=== PATIENT | male | born 1950 | race Caucasian/White ===

== ENCOUNTER 2018-06-30 20:21 | Inpatient (IN) ==
[~2018-06-30] VITALS: Ht 175.3 cm; Wt 63.5 kg
--- NOTE | 2018-06-30 20:30 | NUR ---
[facility]/C COMBATIVE BEHAVIOR. PT AWAKE, UNCLEAR SPEECH, AND APPEARS DISHEVELED. VSS. SKIN DRY AND INTACT. RESPIRATIONS EVEN AND UNLABORED. NO ACUTE DISTRESS NOTED AT THIS TIME. PT PLACED ON CONTINUOUS SPA COORDINATOR.
--- NOTE | 2018-06-30 20:55 | NUR ---
RADIOLOGY AT BEDSIDE FOR CXR
--- NOTE | 2018-06-30 21:23 | NUR ---
UNABLE TO COLLECTED URINE VIA IN AND OUT CATH, DR. ECHEVERRIA MADE AWARE
[2018-06-30] MEDS ORDERED: HALOPERIDOL LACTATE INJ 5 MG/ML VIAL ONE (21:26)
[2018-06-30 21:29] LABS: BASOPHILS # (AUTO) 0.1 /CMM (0.0-0.2); BASOPHILS % (AUTO) 0.5 % (0.0-2.0); EOSINOPHILS % (AUTO) 0.4 % (0.0-6.0); HEMATOCRIT 44 % (39-51); HEMOGLOBIN 14.5 g/dL (13.5-17.5); LYMPHOCYTES # (AUTO) 2.4 /CMM (0.8-4.8); LYMPHOCYTES % (AUTO) 16.6 % (20.0-44.0); MEAN CORPUSCULAR HGB CONC 33 g/dl (31.0-36.0); MEAN CORPUSCULAR VOLUME 90 fL (80-96); MONOCYTES # (AUTO) 0.7 /CMM (0.1-1.30); MONOCYTES % (AUTO) 4.7 % (2.0-12.0); NEUTROPHILS # (AUTO) 11.4 /CMM (1.8-8.9); NEUTROPHILS % (AUTO) 77.8 % (43.0-81.0); PLATELET COUNT (AUTO) 241 /CMM (150-450); RDW COEFFICIENT OF VARIATION 14.4 (11.5-15.0); WHITE BLOOD COUNT (AUTO) 14.7 K/uL (4.3-11.0)
[2018-06-30] MEDS ORDERED: HALOPERIDOL LACTATE INJ 5 MG/ML VIAL IM ONE (21:30)
[2018-06-30 21:41] LABS: CALCIUM, SERUM 9.5 mg/dL (8.5-10.1); CARBON DIOXIDE 31 mmol/L (21-32); CHLORIDE 104 mmol/L (98-107); CREATININE 0.9 mg/dL (0.6-1.3); GLUCOSE 143 mg/dL (74-106); SODIUM SERUM 142 mmol/L (136-145); UREA NITROGEN, BLOOD 9 mg/dL (7-18)
[2018-06-30 21:44] LABS: ALCOHOL, BLOOD < 3 mg/dL (0-0); POTASSIUM 2.6 mmol/L (3.5-5.1)
[2018-06-30 21:48] LABS: TROPONIN I < 0.017 ng/mL (0.00-0.056)
--- NOTE | 2018-06-30 21:58 | NUR ---
PT IS ASSIGNED TO [facility]#: [id number], DX: HYPOKALEMIA, AND ACCEPTING MD: DR BARNETT
[2018-06-30] MEDS ORDERED: POTASSIUM CL. PREMIX PERIPHER. 50 ML ONE (22:02)
[2018-06-30] MEDS: POTASSIUM CL. PREMIX PERIPHER. 50 ML IV SCH ×2 (22:22→23:45)
--- NOTE | 2018-06-30 22:22 | NUR ---
IVBP KCL 10MEQ BAG 1 TRANSFUSING AT THIS TIME. PT TOLERATING AT THIS TIME.
[2018-06-30] MEDS ORDERED: INSULIN REGULAR, HUMAN 100 UNIT/ML 3 ML VIAL SQ PRN (22:30)
[2018-06-30] MEDS ORDERED: MAGNESIUM HYDROXIDE 30 ML UDC PO PRN (22:30)
[2018-06-30] MEDS ORDERED: MAG HYDROX/AL HYDROX/SIMETH 30 ML UDC PO PRN (22:30)
[2018-06-30] MEDS ORDERED: IV NS 0.9% 1,000 ML BAG IV ONE (22:30)
[2018-06-30] MEDS ORDERED: HYDROCODONE/APAP 5/325MG 1 EACH TABLET PO PRN (22:30)
[2018-06-30] MEDS ORDERED: ACETAMINOPHEN 325 MG TABLET PO PRN (22:30)
[2018-06-30] MEDS ORDERED: Z GUARD REMEDY 2 OZ OINT TP PRN (22:30)
[2018-06-30] MEDS ORDERED: ZOLPIDEM TARTRATE 5 MG TABLET PO PRN (22:30)
[2018-06-30] MEDS ORDERED: DEXTROSE 50%-WATER 50 ML DISP.SYRIN IV PRN (22:30)
[2018-06-30] MEDS ORDERED: ONDANSETRON HCL/PF 4 MG/2 ML VIAL IVP PRN (22:30)
[2018-06-30] MEDS ORDERED: POTASSIUM CL. PREMIX PERIPHER. 150 ML ONE (22:36)
--- NOTE | 2018-06-30 22:40 | NUR ---
PT TRANSFERRED PER ACLS PROTOCOL. IVBP KCL 1 OF 4 BAGS TRANFUSING ON ADMISSION. PT TOLERATING WELL.
--- NOTE | 2018-06-30 23:00 | NUR ---
MS BARBER SHOP MANAGER NOTES ADMITTED FROM ER THIS 67 Y.O. MALE A/O X1,CONFUSED,WITH PERIODS OF AGITATION AND COMBATIVENESS.SWEDISH SPEAKING WITH GARBLED SPEECH.NOTED WITH MULTIPLE SKIN ISSUES DOCUMENTED ON SKIN ASSESSMENT FLOW SHEET.WITH SALINE LOCK RIGHT FOOT #20,INSERTED IN ER.PATIENT CAME FROM BOARD AND CARE.WITH CHIEF COMPLAINTS OF LOW BLOOD SUGAR AT 40,GIVEN GLUCOSE TABLET CABLE TESTER.WITH CLAMPED GT FROM BOARD AND CARE.NOTED FOOT DROP ON BOTH FEET.POTASSIUM IV ON GOING UPON ARRIVAL ON THE FLOOR,3 MORE BAGS TO INFUSE.HIGH FALL RISK,WAS PLACE NEAR NURSES STATION.BED ON LOWEST POSITION AND LOCK.CALL LIGHT IN REACH,NEEDS ANTICIPATED.
[2018-06-30 23:20] VITALS: BP 147/91
[2018-06-30 23:55] VITALS: BP 147/91
--- NOTE | 2018-07-01 00:03 | NUR ---
MS RN NOTES C/O PAIN 5/10 ON PAIN SCALE VIA RIGHT FOOT,NORCO 5/325MG,1TAB PO GIVEN FOR MODERATE PAIN.
[2018-07-01] MEDS: POTASSIUM CL. PREMIX PERIPHER. 50 ML IV SCH ×2 (00:44→02:11)
[2018-07-01] MEDS: Potassium Chloride 40 MEQ in IV NS 0.9% 1,000 ML IV PRN ×2 (04:05→15:41)
--- NOTE | 2018-07-01 05:30 | NUR ---
MS RN NOTES ACCU-CHECK BLOOD SUGAR CHECK 103,MORE AWAKE,CONFUSED.DRINKS A LOT OF JUICE.NEGATIVE FOR ASPIRATION.
[2018-07-01] MEDS: BLOOD SUGAR DIAGNOSTIC 1 EACH STRIP IN SCH ×4 (06:15→21:34)
--- NOTE | 2018-07-01 06:30 | NUR ---
MS RN NOTES SLEPT WITH INTERVAL.ALWAYS ASKING FOR APPLE JUICE.MONITOR FOR FALL,NEGATIVE FOR ASPIRATON.IVF WITH KCL INFUSING.IN NO ACUTE DISTRESS.WILL ENDORSE TO DAY NRSE FOR GENE.
[2018-07-01 07:06] LABS: BASOPHILS % (AUTO) 0.2 % (0.0-2.0); EOSINOPHILS % (AUTO) 0.5 % (0.0-6.0); HEMATOCRIT 39 % (39-51); HEMOGLOBIN 12.8 g/dL (13.5-17.5); LYMPHOCYTES # (AUTO) 1.6 /CMM (0.8-4.8); LYMPHOCYTES % (AUTO) 17.6 % (20.0-44.0); MEAN CORPUSCULAR HGB CONC 33 g/dl (31.0-36.0); MEAN CORPUSCULAR VOLUME 93 fL (80-96); MONOCYTES # (AUTO) 0.5 /CMM (0.1-1.30); MONOCYTES % (AUTO) 5.5 % (2.0-12.0); NEUTROPHILS # (AUTO) 6.8 /CMM (1.8-8.9); NEUTROPHILS % (AUTO) 76.2 % (43.0-81.0); PLATELET COUNT (AUTO) 205 /CMM (150-450); RDW COEFFICIENT OF VARIATION 15.9 (11.5-15.0); WHITE BLOOD COUNT (AUTO) 8.9 K/uL (4.3-11.0)
[2018-07-01 07:13] LABS: THYROID STIMULATING HORMONE 2.655 uIU/mL (0.358-3.74)
[2018-07-01 07:16] LABS: CALCIUM, SERUM 8.6 mg/dL (8.5-10.1); CREATININE 0.7 mg/dL (0.6-1.3); MAGNESIUM 2.1 mg/dL (1.8-2.4); PHOSPHORUS 2.9 mg/dL (2.5-4.9)
[2018-07-01 07:50] LABS: POTASSIUM 2.8 mmol/L (3.5-5.1)
[2018-07-01 08:00] VITALS: BP 157/87
--- NOTE | 2018-07-01 08:00 | NUR ---
MS RN NOTES PATIENT IN BED RESTING NO SOB OR ACUTE DISTRESS NOTED. PATIENT CONFUSED. PERIPHERAL IV ON RIGHT FOOT INTACT PATENT. BED IN LOW LOCKED POSITION. CALL LIGHT WITHIN REACH. BED ALARM ON WILL CONTINUE TO MONITOR.
--- NOTE | 2018-07-01 09:11 | NUR ---
WOUND CARE CONSULT: PT PRESENTS WITH OLD G TUBE (CLAMPED), RT HAND DRY ABRASION, BILAT HAND CONTRACTURES, LEFT ANKLE SCAB, SACRAL SCAR, LEFT HEEL SCAR AND DRY ABRASIONS TO LOWER LEGS WITH SCARRING, PRESENT ON ADMISSION. RECOMMENDATIONS MADE FOR SKIN PROTECTION AND CARE. DISCUSSED WITH NURSING STAFF. PT IS INCONTINENT. OUSMANE ISOFLEX LOW AIRLOSS BED TO BE PLACED. WILL SEE PRN. CURRENT ABAD SCORE IS 11. Addendum: 07/01/18 at 0913 by CLAUDIA TURCIOS WNDNU Amended: Links added.
--- NOTE | 2018-07-01 11:00 | NUR ---
MS RN NOTES PATIENT SEEN BY MELODIE WU INFORMED MELODIE OF PATIENTS G-TUBE APPEARANCE WHICH APPEARS BROWN AND TIED AT THE TOP. NO ORDERS GIVEN. WILL CONTINUE TO MONITOR.
[2018-07-01] MEDS ORDERED: POTASSIUM CHLORIDE 20 MEQ TAB.PRT.SR PO ONE (12:00)
[2018-07-01] MEDS ORDERED: LEVO50TA8 GT (13:05)
[2018-07-01] MEDS ORDERED: DONE10TA44 GT (13:05)
[2018-07-01] MEDS ORDERED: ZOLP10TA2 GT (13:05)
[2018-07-01] MEDS ORDERED: LORA2VIA6 IJ (13:05)
[2018-07-01] MEDS ORDERED: HYDR-4075 GT (13:05)
[2018-07-01] MEDS ORDERED: AMLO10TA6 GT (13:05)
[2018-07-01] MEDS ORDERED: DIPH50VI14 IM (13:05)
[2018-07-01] MEDS ORDERED: CHOL100062 GT (13:05)
[2018-07-01] MEDS ORDERED: VALP250S3 GT (13:05)
[2018-07-01] MEDS ORDERED: TAMS0.4C34 GT (13:05)
[2018-07-01] MEDS ORDERED: SIME80TA15 GT (13:05)
[2018-07-01] MEDS ORDERED: FINA5TAB11 GT (13:05)
[2018-07-01] MEDS ORDERED: ENOX40DI SQ (13:05)
[2018-07-01 16:00] VITALS: BP 149/91
--- NOTE | 2018-07-01 18:58 | NUR ---
MS RN NOTES PATIENT IN BED RESTING COMFORTABLE. ALL DUE MEDICATIONS ADMINISTERED ALL NEEDS MET. WILL ENDORSE TO PM SHIFT GENE.
--- NOTE | 2018-07-01 19:30 | NUR ---
MS RN NOTE: PATIENT RESTING IN BED, NO ACUTE DISTRESS NOTED. BREATHING EVEN AND UNLABORED, NO SOB NOTED. IV TO RIGHT FOOT IN PLACE, INFUSING NS WITH 40MEQ KCL AT 100ML/HR. NO S/S OF HYPER/HYPOGLYCEMIA NOTED. BED LOCKED AND IN LOWEST POSITION, CALL LIGHT IN REACH. WILL CONTINUE TO MONITOR.
[2018-07-01 20:44] VITALS: BP 153/85
--- NOTE | 2018-07-01 21:34 | NUR ---
MS RN NOTE: PATIENT REFUSES BLOOD SUGAR CHECK, TRIED TO EXPLAIN RISK AND BENEFITS, BUT PATIENT CONFUSED AND COMBATIVE. NO S/S OF HYPER/HYPOGLYCEMIA NOTED. WILL CONTINUE TO MONITOR.
[2018-07-02] MEDS: Potassium Chloride 40 MEQ in IV NS 0.9% 1,000 ML IV PRN ×3 (01:52→21:16)
[2018-07-02] MEDS: BLOOD SUGAR DIAGNOSTIC 1 EACH STRIP IN SCH ×4 (06:31→22:00)
--- NOTE | 2018-07-02 06:31 | NUR ---
MS RN NOTE: PATIENT RESTING IN BED, NO ACUTE DISTRESS NOTED. BREATHING EVEN AND UNLABORED, NO SOB NOTED. IV TO RIGHT FOOT IN PLACE, INFUSING NS WITH 40MEQ KCL AT 100ML/HR. PATIENT CONTINUES TO REFUSE BLOOD SUGAR CHECK AND BECOMES COMBATIVE, NO S/S OF HYPER/HYPOGLYCEMIA NOTED. TRIED TO EXPLAIN RISK AND BENEFITS, BUT PATIENT IS CONFUSED. BED LOCKED AND IN LOWEST POSITION, CALL LIGHT IN REACH. WILL ENDORSE TO DAY NURSE TO CONTINUE WITH PLAN OF CARE.
[2018-07-02 08:00] VITALS: BP 144/100
--- NOTE | 2018-07-02 08:21 | NUR ---
MS RN OPENING NOTES RECEIVED PT FROM NIGHTSHIFT NURSE IN RIZWAN CONDITION. PT IS A/O X1. NO SOB OR ACUTE SIGNS OF DISTRESS NOTED. BREATHING IS EVEN AND UNLABORED.PT ON RA AND SATING WELL. HE DENIES ANY PAIN AT THIS TIME. IV TO RIGHT FOOT NOTED TO BE PATENT AND INTACT. NO REDNESS OR SIGNS OF INFILTRATION NOTED. PT TOLERATING IV INFUSION WELL. BED IN LOW LOCKED POSITION, SIDE RAILS UP X3, CALL LIGHT WITHIN REACH, BED ALARM ON. WILL CONTINUE TO MONITOR
--- NOTE | 2018-07-02 09:12 | NUR ---
MS RN NOTES: AM LABS PT REFUSED AM LAB DRAWS X2
[2018-07-02] MEDS: ENOXAPARIN SODIUM 40 MG/0.4 ML DISP.SYRIN SQ SCH (12:30)
[2018-07-02] MEDS: hydrALAZINE HCL 10 MG TABLET GT SCH ×2 (13:00→16:46)
[2018-07-02] MEDS ORDERED: VALPROIC ACID 250 MG/5 ML UDC GT SCH (13:00)
--- NOTE | 2018-07-02 13:40 | NUR ---
MS RN NOTES: MEDICATION REFUSAL PT REFUSED 1200 BS CHECK, ALONG WITH SCHEDULED LOVENOX, DEPAKOTE, AND HYDRALAZINE. PT EDUCATED ON MEDICATION COMPLIANCE ALONG WITH THE RISKS AND BENEFITS HOWEVER, CONTINUES TO REFUSE
[2018-07-02 16:00] VITALS: BP 150/82
--- NOTE | 2018-07-02 17:23 | NUR ---
MS RN NOTES: EKG PT REFUSED EKG
--- NOTE | 2018-07-02 18:26 | NUR ---
MS RN CLOSING NOTES PT REMAINS STABLE. ALL NEEDS ANTICIPATED FOR AND MET THROUGHOUT SHIFT. IV REMAINS PATENT AND INTACT. PT TOLERATING IV INFUSION WELL. PRN CARE RENDERED PT PERMITTED. SAFETY MEASURES REMAIN IN PLACE. WILL ENDORSE TO NIGHTSHIFT NURSE FOR GENE
--- NOTE | 2018-07-02 19:30 | NUR ---
MS/RN RECEIVE PATIENT AWAKE, ALERT, CONFUSED, COMFORTABLE, NO DISTRESS NOTED, FALL PRECAUTION PER PROTOCOL, CALL LIGHT IN REACH. WILL MONITOR.
[2018-07-02 20:00] VITALS: BP 138/72
[2018-07-02] MEDS ORDERED: VALPROATE 500 MG in IV D5W 100 ML IV SCH (21:00)
[2018-07-02] MEDS: VALPROATE 500 MG in IV NS 0.9% 100 ML IV SCH (21:16)
[2018-07-02] MEDS: ATORVASTATIN 10 MG TABLET GT SCH (22:00)
[2018-07-02] MEDS: TAMSULOSIN 0.4 MG CAP.SR.24H GT SCH (22:00)
--- NOTE | 2018-07-02 22:22 | NUR ---
MS/RN PATIENT REFUSED BLOOD SUGAR CHECK AND MEDICATIONS.
--- NOTE | 2018-07-03 05:00 | NUR ---
MS/RN MORNING CARE DONE, TOTAL LINEN CHANGE RENDERED. REPOSITIONED TO COMFORT, WILL CONTINUE TO MONITOR.
--- NOTE | 2018-07-03 06:23 | NUR ---
MS/RN PATIENT REFUSED BLOOD DRAW, EXPLAINED IMPORTANCE, UNABLE TO VERBALIZED UNDERSTANDING.
--- NOTE | 2018-07-03 06:34 | NUR ---
MS/RN PATIENT REFUSED ACCU CHECK. EXPLAINED IMPORTANCE OF ACCU CHECK, PATIENT UNABLE TO VERBALIZED UNDERSTANDING. NO CHANGE IN CONDITION. ALL NEEDS ATTENDED AT THIS TIME. WILL CONTINUE TO MONITOR.
[2018-07-03] MEDS: BLOOD SUGAR DIAGNOSTIC 1 EACH STRIP IN SCH ×4 (07:09→21:41)
[2018-07-03 08:00] VITALS: BP 132/70
[2018-07-03] MEDS: CHOLECALCIFEROL 1,000 UNIT TABLET (VIT D3) GT SCH (09:00)
[2018-07-03] MEDS: FINASTERIDE (5 MG) 5 MG TABLET GT SCH (09:00)
[2018-07-03] MEDS: ENOXAPARIN SODIUM 40 MG/0.4 ML DISP.SYRIN SQ SCH (09:00)
[2018-07-03] MEDS: LEVOTHYROXINE SODIUM 50 MCG TABLET GT SCH (09:00)
[2018-07-03] MEDS: SIMETHICONE 80 MG TAB.CHEW GT SCH (09:00)
[2018-07-03] MEDS: hydrALAZINE HCL 10 MG TABLET GT SCH ×3 (09:00→16:34)
[2018-07-03] MEDS: AMLODIPINE BESYLATE 10 MG TABLET GT SCH (09:00)
[2018-07-03 09:59] LABS: HEMATOCRIT 46 % (39-51); MEAN CORPUSCULAR HGB CONC 32 g/dl (31.0-36.0); MEAN CORPUSCULAR VOLUME 94 fL (80-96); RDW COEFFICIENT OF VARIATION 15.9 (11.5-15.0); RED BLOOD CELL COUNT(AUTO) 4.92 MIL/uL (4.5-6.0); WHITE BLOOD COUNT (AUTO) 9.2 K/uL (4.3-11.0)
[2018-07-03 10:00] LABS: BASOPHILS % (AUTO) 0.3 % (0.0-2.0); EOSINOPHILS % (AUTO) 1.7 % (0.0-6.0); LYMPHOCYTES # (AUTO) 2.9 /CMM (0.8-4.8); LYMPHOCYTES % (AUTO) 31.7 % (20.0-44.0); MONOCYTES # (AUTO) 0.4 /CMM (0.1-1.30); MONOCYTES % (AUTO) 4.4 % (2.0-12.0); NEUTROPHILS # (AUTO) 5.7 /CMM (1.8-8.9); NEUTROPHILS % (AUTO) 61.9 % (43.0-81.0); PLATELET COUNT (AUTO) 292 /CMM (150-450)
[2018-07-03 10:04] LABS: CALCIUM, SERUM 9.7 mg/dL (8.5-10.1); CREATININE 0.9 mg/dL (0.6-1.3)
[2018-07-03 10:11] LABS: POTASSIUM 6.1 mmol/L (3.5-5.1)
[2018-07-03] MEDS: VALPROATE 500 MG in IV NS 0.9% 100 ML IV SCH ×2 (10:41→21:35)
[2018-07-03] MEDS ORDERED: IV NS 0.9% 1,000 ML BAG IV PRN (11:30)
[2018-07-03] MEDS: IV NS 0.9% 1,000 ML IV PRN ×2 (12:09→23:33)
[2018-07-03 16:00] VITALS: BP 147/80
--- NOTE | 2018-07-03 16:43 | NUR ---
MS RN NOTE: 1200/1730 ACCU CHECKS PT REFUSED ALL BLOOD SUGAR CHECKS. EDUCATION OF RISKS AND BENEFITS PROVIDED
--- NOTE | 2018-07-03 17:02 | NUR ---
MS RN NOTES: UA SPECIMEN COLLECTION MULTIPLE ATTEMPTS MADE TO INSERT STRAIGHT CATHETER FOR UA SAMPLE HOWEVER PT BECAME PHYSICALLY ABUSIVE, BEGAN SPITTING, AT MYSELF AND THE FREIGHT RATE ANALYST, AND IS REFUSING ANY FURTHER ATTEMPTS
--- NOTE | 2018-07-03 19:10 | NUR ---
MS RN OPENING NOTES Received patient, A/O X1, on supine position on bed. With patent peripheral IV line RFA G#20 with NS infusing well @ 100ml/hr. On RA, no SOB/respiratory distress noted. Patient denies discomfort at this time. For UA collection, per report patient noted to be refusing and uncooperative with the prescribed care. Call light within easy reach. Bed on lowest position, locked. Kept clean, dry and comfortable. Will monitor accordingly.
--- NOTE | 2018-07-03 20:00 | NUR ---
MS RN NOTES Patient refused to be checked of his v/s signs.
[2018-07-03] MEDS: TAMSULOSIN 0.4 MG CAP.SR.24H GT SCH (21:41)
[2018-07-03] MEDS: ATORVASTATIN 10 MG TABLET GT SCH (21:41)
[2018-07-03] MEDS: DONEPEZIL 5 MG TABLET GT SCH (21:42)
--- NOTE | 2018-07-03 21:42 | NUR ---
MS RN NOTES Encourage patient to take his due PO meds and have his blood sugar check. Patient refused. Explained the risk and benefits x3, patient is uttering uncomprehensible words, when ask if he can take his pills he reply "NO".
--- NOTE | 2018-07-04 05:48 | NUR ---
MS RN NOTES Noted foul smelling and beddings soaked in urine. Approached patient calmly, but patient is agitated and combative. Cleaned patient with 2 person assist. Noted had loose BM. Kept clean, dry and comfortable. Call light held by patient at all times. Will continue to monitor.
--- NOTE | 2018-07-04 06:56 | NUR ---
MS RN CLOSING NOTES Patient asleep on supine position on bed, with patent peripheral IV line R foot with Ns infusing well @ 100ml/hr. No signs of discomfort noted at this time. Refused vital signs check, accu check, and blood drawn. Kept on bed clean, dry and comfortable. Call light held by patient at all times. Endorsed to the next shift.
[2018-07-04] MEDS: BLOOD SUGAR DIAGNOSTIC 1 EACH STRIP IN SCH ×4 (07:30→21:51)
--- NOTE | 2018-07-04 07:37 | NUR ---
MS RN NOTES PATIENT RECEIVED RESTING INSIDE ROOM. AWAKE, ALERT AND ORIENTED TO SELF. VERBALLY RESPONSIVE AND RESPONDS TO VERBAL AND TACTILE STIMULI. BREATHING EVEN AND UNLABORED. NO SOB OR ACUTE DISTRESS. DENIES ANY PAIN OR DISCOMFORT. NO CHANGES IN LOC NOTED. OFFERED TO CHECK FSBS BUT PATIENT REFUSED. RISKS AND BENEFITS EXPLAINED BUT TO NO AVAIL. OFFERED X 3, PATIENT RESPONDED, "NO" TO ALL OFFERS. WILL CONTINUE TO MONITOR. BED LOCKED AND IN LOW POSITION. BILATERAL UPPER SIDE RAILS UP AND LOCKED. CALL LIGHT WITHIN EASY REACH.
[2018-07-04 08:36] VITALS: BP 160/98
[2018-07-04] MEDS: hydrALAZINE HCL 10 MG TABLET GT SCH ×3 (09:00→16:12)
[2018-07-04] MEDS: AMLODIPINE BESYLATE 10 MG TABLET GT SCH (09:00)
[2018-07-04] MEDS: ENOXAPARIN SODIUM 40 MG/0.4 ML DISP.SYRIN SQ SCH (09:00)
[2018-07-04] MEDS: FINASTERIDE (5 MG) 5 MG TABLET GT SCH (09:00)
[2018-07-04] MEDS: LEVOTHYROXINE SODIUM 50 MCG TABLET GT SCH (09:00)
[2018-07-04] MEDS: CHOLECALCIFEROL 1,000 UNIT TABLET (VIT D3) GT SCH (09:00)
[2018-07-04] MEDS: SIMETHICONE 80 MG TAB.CHEW GT SCH (09:00)
[2018-07-04] MEDS: VALPROATE 500 MG in IV NS 0.9% 100 ML IV SCH ×2 (09:11→21:48)
[2018-07-04] MEDS: IV NS 0.9% 1,000 ML IV PRN (11:15)
[2018-07-04 16:07] VITALS: BP 138/87
--- NOTE | 2018-07-04 18:54 | NUR ---
MS RN NOTES PATIENT RESTING INSIDE ROOM. AWAKE, ALERT AND ORIENTED TO SELF. PATIENT WITH DISORGANIZED THOUGHT PROCESS. WITH MULTIPLE EPISODES OF REFUSING CARE, MEDICATIONS. RISKS AND BENEFITS EXPLAINED BUT TO NO AVAIL. PATIENT WITH EPISODES OF STRIKING OUT. WITH ATTEMPTS OF HITTING STAFF. PATIENT REFUSED TO HAVE IV ON RIGHT FOOT ASSESSED. PATIENT WOULD SWING FEET AND ATTEMPT TO KICK STAFF. ALSO WITH EPISODES OF THROWING BED ARTICLES TO STAFF. PROVIDED WITH LESS STIMULI. PROVIDED PATIENT WITH CALM ENVIRONMENT AND PATIENT CALMED DOWN. WILL ENDORSE TO INCOMING SHIFT FOR GENE. BED LOCKED AND IN LOW POSITION. BILATERAL UPPER SIDE RAILS UP AND LOCKED. MAINTAINED ASPIRATION PRECAUTION. ELEVATED HOB AT 45. BED ALARM ON. CALL LIGHT WITHIN EASY REACH
--- NOTE | 2018-07-04 19:10 | NUR ---
MS RN OPENING NOTES Patient A/O x1, on supine position on bed. IV line disconnected, NS @ 400 ml level. Patient refused to be repositioned, remained clean and dry. No s/s of discomfort noted at this time. Patient holding the call light. Approached the patient calmly, able to check peripheral IV line R foot G#20, remains patent. Reconnected IV line and infuse @ 100ml/hr as ordered. Kept bed low and locked, siderails x2 up. Will continue to monitor accordingly.
[2018-07-04 20:00] VITALS: BP 154/86
[2018-07-04 20:22] VITALS: BP 154/86
[2018-07-04] MEDS: DONEPEZIL 5 MG TABLET GT SCH (21:51)
[2018-07-04] MEDS: ATORVASTATIN 10 MG TABLET GT SCH (21:51)
[2018-07-04] MEDS: TAMSULOSIN 0.4 MG CAP.SR.24H GT SCH (21:51)
[2018-07-05] MEDS: IV NS 0.9% 1,000 ML IV PRN ×2 (00:43→12:46)
--- NOTE | 2018-07-05 05:06 | NUR ---
MS RN NOTES Routine care done with 2 persons assist. Patient noted combative, hitting, yelling and spitting the staff. Patient tolerated the procedure well. Kept on bed comfortably. Call light held by patient at all times.
--- NOTE | 2018-07-05 06:55 | NUR ---
MS RN CLOSING NOTES Patient asleep on supine position on bed, with patent peripheral IV line R foot G#20 with NS infusing well @ 100ml/hr as ordered, no s/s of infiltration noted. Due IV meds given as ordered, no ASE noted. Patient refused all PO meds and accu check. No latest labs as ordered, patient refused blood draw. Patient was noted pressing call lights several times, each call was attended but patient has no concerns, only pressing the help button while watching TV. Patient is combative with routine change of diaper and bed linens, noted punching staff, hitting with call light and anything held by hand, and spitting. Able to managed cleaning the patient with 2 persons assist. Kept clean, dry and comfortable. No new unusualities. Still awaiting for placement. Bed in lowest position, locked and siderails X2 up. Endorsed to the next shift.
--- NOTE | 2018-07-05 07:10 | NUR ---
MS/RN OPENING NOTE PATIENT IS RECEIVED IN BED AWAKE. ALERT AND ORIENTED X1. PATIENT IS NOTED TO HAVE DISORGANIZED THOUGH. DENIES PAIN. RESPIRATION REGULAR AND UNLABORED. DENIES SOB. PATIENT IN NO APPARENT DISTRESS. RIGHT FOOT G 20 PATENT AND NORMAL SALINE INFUSING AT 100ML/HR. NO S/S INFILTRATION NOTED. PATIENT REFUSED BLOOD DRAW. PATIENT WITH EPISODES OF STRIKING OUT, USING THE CALL LIGHT TO HIT ON THE BEDSIDE TABLE AND SIDE RAILS A WAY CALLING A NURSE. BED LOW AND LOCKED. SIDE RAILS UP X3. BED LOCKED. CALL LIGHT WITHIN REACH. WILL CONTINUE TO MONITOR.
[2018-07-05] MEDS: BLOOD SUGAR DIAGNOSTIC 1 EACH STRIP IN SCH ×4 (07:30→22:00)
--- NOTE | 2018-07-05 07:30 | NUR ---
MS/RN NOTE PATIENT REFUSED BLOOD SUGAR CHECK DESPITE EXPLAINING RISKS AND BENEFITS. PATIENT IN NO APPARENT DISTRESS. NO APPARENT S/S OF HYPO/HYPERGLYCEMIA NOTED.
[2018-07-05 08:00] VITALS: BP_SYST 157; BP_SYST 163; BP_DIAS 67; BP_DIAS 88
[2018-07-05] MEDS: AMLODIPINE BESYLATE 10 MG TABLET GT SCH (08:22)
[2018-07-05] MEDS: hydrALAZINE HCL 10 MG TABLET GT SCH ×3 (08:22→17:40)
[2018-07-05] MEDS: ENOXAPARIN SODIUM 40 MG/0.4 ML DISP.SYRIN SQ SCH (09:00)
[2018-07-05] MEDS: CHOLECALCIFEROL 1,000 UNIT TABLET (VIT D3) GT SCH (09:07)
[2018-07-05] MEDS: FINASTERIDE (5 MG) 5 MG TABLET GT SCH (09:07)
[2018-07-05] MEDS: LEVOTHYROXINE SODIUM 50 MCG TABLET GT SCH (09:07)
[2018-07-05] MEDS: SIMETHICONE 80 MG TAB.CHEW GT SCH (09:07)
[2018-07-05] MEDS: VALPROATE 500 MG in IV NS 0.9% 100 ML IV SCH ×2 (09:08→21:08)
--- NOTE | 2018-07-05 09:50 | NUR ---
MS/RN NOTE PATIENT REFUSED LOVENOX INFECTION DUE AT 0900. RISKS AND BENEFITS WERE EXPLAINED MULTIPLE TIMES BUT THE PATIENT STILL REFUSED.
--- NOTE | 2018-07-05 10:57 | NUR ---
MS/RN NOTE PATIENT REFUSES TURNING AND REPOSITIONING DESPITE EXPLAINING RISKS AND BENEFITS. PATIENT REMAINS ON SUPINE POSITION.
--- NOTE | 2018-07-05 12:00 | NUR ---
MS/RN NOTE PATIENT REFUSED BLOOD SUGAR CHECK DESPITE EXPLAINING RISKS AND BENEFITS MULTIPLE TIMES.
--- NOTE | 2018-07-05 12:45 | NUR ---
MS/RN NOTE PATIENT REFUSED BLOOD DRAW AGAIN DESPITE EXPLAINING RISKS AND BENEFITS.
--- NOTE | 2018-07-05 13:02 | NUR ---
MS/RN NOTE NEONATAL SURGEON BRYCE IS MADE AWARE THAT THE PATIENT HAS BEEN REFUSING BLOOD DRAW, BLOOD SUGAR CHECK AND LOVENOX DESPITE EXPLAINING RISKS AND BENEFITS MULTIPLE TIME. NO NEW ORDERS PER NEONATAL SURGEON BRYCE.
[2018-07-05 14:00] VITALS: BP 136/76
[2018-07-05 16:00] VITALS: BP 171/109
--- NOTE | 2018-07-05 17:30 | NUR ---
MS/RN NOTE PATIENT REFUSED BLOOD SUGAR CHECK. EXPLAINED RISKS AND BENEFITS MULTIPLE TIMES BUT THE PATIENT STILL REFUSED. PATRICIO WU IS MADE AWARE.
--- NOTE | 2018-07-05 18:04 | NUR ---
MS/RN CLOSING NOTE PATIENT IN BED AND AWAKE. ALERT AND ORIENTED TO SELF. PATIENT HAS DISORGANIZED THOUGH, EPISODES OF BEING COMBATIVE AND REFUSING CARE. ALSO, REFUSING BLOOD SUGAR CHECKS, BLOOD DRAWS AND LOVENOX INJECTION. PATIENT IS EXPLAINED RISKS AND BENEFITS MULTIPLE TIMES BUT THE PATIENT CONTINUES TO REFUSE. PATIENT IS ENCOURAGE TO BE COMPLIANT WITH PLAN OF CARE, ENCOURAGED TO EXPRESS SELF IN CALM AND COOPERATIVE MANNER. RIGHT FOOT G 20 PATENT AND NORMAL SALINE INFUSING AT 100ML/HR. NO S/S INFILTRATION NOTED. GOOD AND GENTLE SKIN CARE RENDERED. ALL NEEDS ATTENDED AND ANTICIPATED. KEPT CLEAN, DRY AND COMFORTABLE. PATIENT NON-COMPLIANT WITH TURNING AND REPOSITIONING DESPITE EXPLAINING RISKS AND BENEFITS. BED LOW AND LOCKED. SIDE RAILS UP X3. BED ALARM ON. CALL LIGHT WITHIN REACH. WILL ENDORSE TO BAND DIRECTOR.
--- NOTE | 2018-07-05 19:20 | NUR ---
MS RN OPENING NOTES RECEIVED PATIENT IN BED AWAKE, ALERT AND ORIENTED X1. PATIENT IS NOTED TO HAVE DISORGANIZED THOUGHT. DENIES PAIN. RESPIRATION REGULAR AND UNLABORED. DENIES SOB. NO ACUTE DISTRESS NOTED. RIGHT FOOT G 20 PATENT AND IVF RUNNING ORDERED. NO S/S INFILTRATION NOTED. PER REPORT,PATIENT WITH EPISODES OF COMBATIVE BEHAVIOR & REFUSES ADL CARE AND MEDS. PATIENT IS INCONTINENT, WILL KEEP HIM CLEAN & DRY MUCH POSSIBLE. BED IN LOW AND LOCKED POSITION. SIDE RAILS UP X3. CALL LIGHT WITHIN REACH. WILL CONTINUE TO MONITOR CLOSELY.
[2018-07-05 20:00] VITALS: BP 149/77
[2018-07-05] MEDS: TAMSULOSIN 0.4 MG CAP.SR.24H GT SCH (21:09)
[2018-07-05] MEDS: ATORVASTATIN 10 MG TABLET GT SCH (21:09)
[2018-07-05] MEDS: DONEPEZIL 5 MG TABLET GT SCH (21:09)
--- NOTE | 2018-07-05 22:05 | NUR ---
MS RN NOTE PATIENT REFUSED TO TAKE MEASUREMENTS OF OPEN SKIN AREAS DESPITE OF EXPLANATIONS. PT REFUSED TO BE TOUCHED AT ALL. OBSERVING CLOSELY.
--- NOTE | 2018-07-05 22:27 | NUR ---
REFUSED BLOOD SUGAR CHECKED PATIENT COMPLETELY REFUSED TO GET HIS BLOOD SUGAR LEVEL CHECKED DESPITE OF EXPLANATIONS. PT IS NOT IN ANY DISTRESS OR DISCOMFORT AT THIS TIME. WILL CONTINUE TO MONITOR CLOSELY.
[2018-07-06] MEDS: IV NS 0.9% 1,000 ML IV PRN ×2 (00:50→13:35)
--- NOTE | 2018-07-06 07:00 | NUR ---
MS RN CLOSING NOTE PATIENT SLEPT WELL AT NIGHT, A & O X 1. REFUSED BLOOD SUGAR CHECKS AT NIGHT DESPITE OF EXPLANATIONS, BLOOD DRAWS AND LOVENOX INJECTION. PATIENT IS ENCOURAGE TO BE COMPLIANT WITH PLAN OF CARE, ENCOURAGED TO EXPRESS SELF IN CALM AND COOPERATIVE MANNER. RIGHT FOOT G 20 PATENT & INTACT, RUNNING WITH IVF ORDERED. NO S/S INFILTRATION NOTED. GENTLE SKIN CARE RENDERED. KEPT CLEAN, DRY AND COMFORTABLE. PATIENT NON-COMPLIANT WITH TURNING AND REPOSITIONING, ONLY WANTS TO BE IN SUPINE POSITION DESPITE OF EXPLAINING RISKS AND BENEFITS. PT ALSO REFUSES ADL CARE AT TIMES, BECOMES COMBATIVE. BED LOW AND LOCKED. SIDE RAILS UP X3. BED ALARM ON. CALL LIGHT WITHIN REACH. WILL ENDORSE TO AM SHIFT.
--- NOTE | 2018-07-06 07:10 | NUR ---
MS/RN OPENING NOTE PATIENT IS RECEIVED IN BED AWAKE. ALERT AND ORIENTED TO SELF. ORIENTATION PROVIDED. PATIENT DENIES PAIN. RESPIRATION REGULAR AND UNLABORED. DENIES SOB. PATIENT IN NO APPARENT DISTRESS. PATIENT CALM AT THIS TIME. PATIENT ON SUPINE POSITION. ENCOURAGED THE PATIENT TO TURN, EXPLAINED RISKS AND BENEFITS BUT THE PATIENT REFUSED TO TURN. BED LOW AND LOCKED. BED ALARM ON. SIDE RAILS UP X3. CALL LIGHT WITHIN REACH. WILL CONTINUE TO MONITOR.
[2018-07-06] MEDS: BLOOD SUGAR DIAGNOSTIC 1 EACH STRIP IN SCH ×4 (07:30→22:16)
--- NOTE | 2018-07-06 07:51 | NUR ---
MS/RN NOTE PATIENT REFUSED BLOOD SUGAR CHECK. EXPLAINED RISKS AND BENEFITS AND ENCOURAGED THE PATIENT, HOWEVER, THE PATIENT STILL REFUSED.
[2018-07-06 08:00] VITALS: BP 149/79
[2018-07-06] MEDS: FINASTERIDE (5 MG) 5 MG TABLET GT SCH (08:00)
[2018-07-06] MEDS: LEVOTHYROXINE SODIUM 50 MCG TABLET GT SCH (08:00)
[2018-07-06] MEDS: CHOLECALCIFEROL 1,000 UNIT TABLET (VIT D3) GT SCH (08:00)
[2018-07-06] MEDS: SIMETHICONE 80 MG TAB.CHEW GT SCH (08:00)
[2018-07-06] MEDS: AMLODIPINE BESYLATE 10 MG TABLET GT SCH (08:00)
[2018-07-06] MEDS: hydrALAZINE HCL 10 MG TABLET GT SCH ×3 (08:01→17:51)
[2018-07-06] MEDS: ENOXAPARIN SODIUM 40 MG/0.4 ML DISP.SYRIN SQ SCH (09:00)
[2018-07-06] MEDS: VALPROATE 500 MG in IV NS 0.9% 100 ML IV SCH ×2 (09:11→20:43)
--- NOTE | 2018-07-06 12:12 | NUR ---
MS/RN NOTE PATIENT REFUSED BLOOD SUGAR CHECK DESPITE EXPLAINING RISKS AND BENEFITS.
--- NOTE | 2018-07-06 13:00 | NUR ---
MS/RN NOTE PATIENT REFUSES TO TURN AND REPOSITION DESPITE EXPLAINING RISKS AND BENEFITS. IF THE PATIENT IS TOUCHED, HE STARTS TO SCREAM, HIT STAFF USING HAND AND ITEMS NEAR BY. Addendum: 07/06/18 at 1404 by BEN LOCK RN MS/RN NOTE PATRICIO WU IS MADE AWARE.
--- NOTE | 2018-07-06 13:59 | NUR ---
MS/RN NOTE PATIENT REFUSING TURNING, REPOSITIONING AND OFFLOADING THE EXTREMITIES AND CHANGING DIAPER, LINENS AND PROVIDING SKIN CARE. THE PATIENT IS ENCOURAGED, EXPLAINED RISKS AND BENEFITS BUT THE PATIENT DID NOT WANT TO LISTEN AND STILL REFUSED.
[2018-07-06] MEDS ORDERED: HALOPERIDOL 5 MG TABLET PO ONE (15:00)
[2018-07-06] MEDS ORDERED: diphenhydrAMINE HCL 50 MG CAPSULE PO ONE (15:00)
[2018-07-06] MEDS ORDERED: LORAZEPAM 1 MG TABLET PO ONE (15:00)
[2018-07-06 16:00] VITALS: BP_SYST 143; BP_DIAS 83; BP_DIAS 86
[2018-07-06] MEDS ORDERED: TEMAZEPAM 7.5 MG CAPSULE PO PRN (16:30)
[2018-07-06] MEDS ORDERED: LORAZEPAM 1 MG TABLET PO PRN (17:00)
--- NOTE | 2018-07-06 17:38 | NUR ---
MS/RN NOTE PATIENT REFUSED BLOOD SUGAR CHECK DESPITE ENCOURAGEMENT AND EXPLAINING RISKS AND BENEFITS.
--- NOTE | 2018-07-06 18:26 | NUR ---
MS/RN CLOSING NOTE PATIENT ALERT AND ORIENTED X1. COMBATIVE AND NON-COMPLIANT WITH PLAN OF CARE. PATIENT REFUSES BLOOD DRAW, LOVENOX INJECTION AND BLOOD SUGAR CHECK DESPITE EXPLAINING RISKS AND BENEFITS AND ENCOURAGING THE PATIENT MULTIPLE TIMES. GOLD BUYER BRYCE IS MADE AWARE. RIGHT FOOT G 20 PATENT AND NORMAL SALINE INFUSING AT 100ML/HR AND NO S/S INFILTRATION NOTED. BED LOW AND LOCKED. BED ALARM ON. SIDE RAILS UP X3. CALL LIGHT WITHIN REACH. WILL ENDORSE TO IN SERVICE EDUCATOR.
--- NOTE | 2018-07-06 19:43 | NUR ---
MS/RN OPENING NOTES RECEIVED PATIENT IN BED, AWAKE, TALKING TO SELF, ALERT X2, RESPIRATIONS EVEN AND UNLABORED WITH NOTED SOME BEHAVIOR PROBLEM OBSERVED AND NON COMPLIANCE IN TAKING MEDICATION RECEIVED ENDORSEMENT FROM AM RN FOR GENE AND MD INSTRUCTION TO MONITOR AND GIVE NEED MEDICATION FOR AGITATION AND COMBATIVENESS. IV SITE ON RIGHT FOOT GAUGE 20, REFUSED LABS AND CALL LIGHTS WITHIN REACH, SAFETY MEASURES PROVIDED. OFFERED FLUIDS AND TO ATTEND TO HIS NEEDS.
[2018-07-06 20:00] VITALS: BP 131/74
[2018-07-06 20:24] VITALS: BP 131/74
[2018-07-06] MEDS: TAMSULOSIN 0.4 MG CAP.SR.24H GT SCH (21:26)
[2018-07-06] MEDS: ATORVASTATIN 10 MG TABLET GT SCH (21:26)
[2018-07-06] MEDS: DONEPEZIL 5 MG TABLET GT SCH (21:26)
--- NOTE | 2018-07-07 06:48 | NUR ---
311-2 MS/RN NOTES PATIENT ABLE TO SLEEP DURING THE NIGHT, IV FLUIDS ADMINISTERED AND ANTIBOTIC THERAPHY, ABLE TO GIVE ORAL MEDICATION WITH APPLE SAUCE, UNABLE TO HAVE BLOOD GLUCOSE CHECK AND REFUSE SKIN ASSESSMET, BED IN LOCKED POSITON. CALL LIGHTS WITHIN REACH WILL ENDORSE TO AM RN FOR GENE,
[2018-07-07] MEDS: BLOOD SUGAR DIAGNOSTIC 1 EACH STRIP IN SCH ×4 (07:30→21:41)
--- NOTE | 2018-07-07 08:00 | NUR ---
MS RN NOTES PATIENT IN BED RESTING NO SOB OR ACUTE DISTRESS NOTED. PATIENT NONCOMPLIANT WHEN TOUCHED PATIENTS STARTS HITTING AND KICKING. PATIENT AT REST IS CALM. REFUSES MEDICATIONS, ACCUCHECK. MD AWARE. WILL CONTINUE TO MONITOR.
[2018-07-07] MEDS: ENOXAPARIN SODIUM 40 MG/0.4 ML DISP.SYRIN SQ SCH (09:00)
[2018-07-07] MEDS: AMLODIPINE BESYLATE 10 MG TABLET GT SCH (09:02)
[2018-07-07] MEDS: FINASTERIDE (5 MG) 5 MG TABLET GT SCH (09:03)
[2018-07-07] MEDS: LEVOTHYROXINE SODIUM 50 MCG TABLET GT SCH (09:03)
[2018-07-07] MEDS: hydrALAZINE HCL 10 MG TABLET GT SCH ×3 (09:03→16:31)
[2018-07-07] MEDS: SIMETHICONE 80 MG TAB.CHEW GT SCH (09:03)
[2018-07-07] MEDS: VALPROIC ACID 250 MG/5 ML UDC GT SCH ×3 (09:03→21:41)
[2018-07-07] MEDS: CHOLECALCIFEROL 1,000 UNIT TABLET (VIT D3) GT SCH (09:03)
[2018-07-07 10:58] LABS: BASOPHILS % (AUTO) 0.4 % (0.0-2.0); EOSINOPHILS % (AUTO) 5.2 % (0.0-6.0); HEMATOCRIT 40 % (39-51); HEMOGLOBIN 13.1 g/dL (13.5-17.5); LYMPHOCYTES # (AUTO) 1.3 /CMM (0.8-4.8); LYMPHOCYTES % (AUTO) 18.2 % (20.0-44.0); MEAN CORPUSCULAR HGB CONC 33 g/dl (31.0-36.0); MEAN CORPUSCULAR VOLUME 93 fL (80-96); MONOCYTES # (AUTO) 0.4 /CMM (0.1-1.30); MONOCYTES % (AUTO) 5.5 % (2.0-12.0); NEUTROPHILS % (AUTO) 70.7 % (43.0-81.0); PLATELET COUNT (AUTO) 229 /CMM (150-450); RDW COEFFICIENT OF VARIATION 15.8 (11.5-15.0); RED BLOOD CELL COUNT(AUTO) 4.33 MIL/uL (4.5-6.0); WHITE BLOOD COUNT (AUTO) 7.1 K/uL (4.3-11.0)
[2018-07-07 11:13] LABS: CALCIUM, SERUM 8.9 mg/dL (8.5-10.1); CREATININE 0.8 mg/dL (0.6-1.3); MAGNESIUM 1.9 mg/dL (1.8-2.4); PHOSPHORUS 2.1 mg/dL (2.5-4.9); POTASSIUM 3.9 mmol/L (3.5-5.1)
[2018-07-07 11:15] LABS: APPEARANCE,URINE CLEAR (CLEAR); BILIRUBIN,URINE NEGATIVE (NEGATIVE); BLOOD, URINE 1+ Ery/uL (NEGATIVE); COLOR,URINE YELLOW (YELLOW); KETONES,URINE NEGATIVE (NEGATIVE); LEUKOCYTE ESTERASE ,URINE TRACE (NEGATIVE); NITRITE, URINE NEGATIVE (NEGATIVE); PROTEIN,URINE NEGATIVE (NEGATIVE); UGLUCOSE NEGATIVE (NEGATIVE); UROBILINOGEN,URINE 0.2 EU/dL (0.2)
[2018-07-07 11:19] LABS: BACTERIA,URINE Few /HPF (None Seen); CALCIUM OXALATE CRYSTALS,UR Rare /HPF (None Seen); MUCUS,URINE Few /LPF (None Seen); SQUAMOUS EPITHELIAL CELL,UR Few /HPF (None Seen)
[2018-07-07 11:21] VITALS: BP 159/92
[2018-07-07] MEDS: LEVOFLOXACIN 750 MG /D5W 150ML 750 MG in PREMIX 1 EA IV SCH (12:38)
[2018-07-07] MEDS ORDERED: NEUTRA PHOS 1 POWD.PACKET PO ONE (13:00)
[2018-07-07 16:00] VITALS: BP 165/98
[2018-07-07] MEDS: IV NS 0.9% 1,000 ML IV PRN (16:29)
--- NOTE | 2018-07-07 18:08 | NUR ---
MS RN NOTES PATIENT ALERT ORIENTED X3 NO SOB OR ACUTE DISTRESS NOTED. ALL DUE MEDICATIONS ADMINISTERED. NO ACUTE CHANGED NOTED PER SHIFT. ALL NEEDS MET. WILL ENDORSE TO PM GENE.
--- NOTE | 2018-07-07 19:10 | NUR ---
RN OPENING NOTES PT AWAKE AND RESTING IN BED. NO APPARENT S/S OF PAIN, DISTRESS OR SOB AT THIS TIME. PER DAY SHIFT NURSE PATIENT CAN BE NONCOMPLIANT AND COMBATIVE AT TIMES. PT HAS A RIGHT FOOT IV #20 RUNNING NS @100ML/HR. SAFETY PRECAUTIONS IN PLACE, BED IN LOWEST LOCKED POSITION, X3 SIDE RAILS UP AND CALL LIGHT WITHIN REACH. WILL CONTINUE TO MONITOR.
[2018-07-07 20:00] VITALS: BP 147/85
[2018-07-07] MEDS: ATORVASTATIN 10 MG TABLET GT SCH ×2 (21:40→21:58)
[2018-07-07] MEDS: DONEPEZIL 5 MG TABLET GT SCH ×2 (21:40→21:58)
[2018-07-07] MEDS: TAMSULOSIN 0.4 MG CAP.SR.24H GT SCH ×2 (21:41→21:58)
--- NOTE | 2018-07-07 21:45 | NUR ---
RN NOTES PATIENT REFUSED ACCU CHEK. PATIENT SPIT OUT DEPAKENE, ARICEPT, FLOMAX AND LIPITOR. EXPLAINED TO PATIENT IMPORTANCE OF MEDICATION COMPLIANCE.
[2018-07-08] MEDS: IV NS 0.9% 1,000 ML IV PRN ×2 (02:46→16:27)
--- NOTE | 2018-07-08 06:30 | NUR ---
RN NOTES PATIENT REFUSED ACCU CHEK AND BECAME VERY COMBATIVE. ATTEMPTED TO KICK AND BITE RN AND POWER MULE OPERATOR.
--- NOTE | 2018-07-08 06:31 | NUR ---
RN CLOSING NOTES PT AWAKE AND RESTING IN BED. NO APPARENT S/S OF PAIN, DISTRESS OR SOB OVERNIGHT. PATIENT REFUSED ALL ORAL MEDICATION AND ACCU CHEKS. PATIENT BECAME COMBATIVE. PT HAS A RIGHT FOOT IV #20 RUNNING NS @100ML/HR. SAFETY PRECAUTIONS IN PLACE, BED IN LOWEST LOCKED POSITION, X3 SIDE RAILS UP AND CALL LIGHT WITHIN REACH. WILL ENDORSE TO DAY SHIFT NURSE FOR CONTINUITY OF CARE.
[2018-07-08] MEDS: BLOOD SUGAR DIAGNOSTIC 1 EACH STRIP IN SCH ×4 (06:40→21:39)
[2018-07-08 08:00] VITALS: BP 140/94
[2018-07-08] MEDS: CHOLECALCIFEROL 1,000 UNIT TABLET (VIT D3) GT SCH (08:00)
[2018-07-08] MEDS: VALPROIC ACID 250 MG/5 ML UDC GT SCH (08:00)
--- NOTE | 2018-07-08 08:00 | NUR ---
MS RN NOTES PATIENT IN BED RESTING NO SOB OR ACUTE DISTRESS NOTED. PATIENT NONCOMPLIANT, WHEN TOUCHED PATIENTS STARTS HITTING AND KICKING. PATIENT AT REST IS CALM. REFUSES MEDICATIONS, ACCUCHECK. MD AWARE. WILL CONTINUE TO MONITOR.
[2018-07-08] MEDS: FINASTERIDE (5 MG) 5 MG TABLET GT SCH (08:01)
[2018-07-08] MEDS: hydrALAZINE HCL 10 MG TABLET GT SCH ×3 (08:02→16:27)
[2018-07-08] MEDS: AMLODIPINE BESYLATE 10 MG TABLET GT SCH (08:02)
[2018-07-08] MEDS: LEVOTHYROXINE SODIUM 50 MCG TABLET GT SCH (08:02)
[2018-07-08] MEDS: SIMETHICONE 80 MG TAB.CHEW GT SCH (08:03)
[2018-07-08] MEDS: ENOXAPARIN SODIUM 40 MG/0.4 ML DISP.SYRIN SQ SCH (08:03)
[2018-07-08] MEDS: LEVOFLOXACIN 750 MG /D5W 150ML 750 MG in PREMIX 1 EA IV SCH (12:02)
[2018-07-08 16:00] VITALS: BP 149/76
--- NOTE | 2018-07-08 17:00 | NUR ---
MS RN NOTES PATIENT REFUSED BLOOD DRAWS DR.TIM ROCHA MADE AWARE STATES TO CANCELL TODAY DRAWS AND JUST HAVE BLOOD DRAWN TOMORROW IF ALLOWS.
--- NOTE | 2018-07-08 18:18 | NUR ---
MS RN NOTES PATIENT IN BED RESTING NO SOB OR ACUTE DISTRESS NOTED. ALL DUE MEDICATIONS ADMINISTERED. PATIENT NONE COMPLIANT WITH MEDICATIONS AND CARE. PATIENT REFUSES TO BE TURNED AND REPOSITIONED WHEN TRYING TO TURN PATIENT HE KICKS AND SPITS. MD AWARE. CALL LIGHT WITHIN REACH. BED IN LOW LOCKED POSITION. WILL CONTINUE TO MONITOR.
--- NOTE | 2018-07-08 19:10 | NUR ---
RN OPENING NOTES PT AWAKE AND RESTING IN BED. NO APPARENT S/S OF PAIN, DISTRESS OR SOB AT THIS TIME. PATIENT CALM AT REST. PER DAY SHIFT NURSE PATIENT CONTINUES TO BE NONCOMPLIANT AND COMBATIVE WHEN ATTEMPTING TO ADMINISTER CARE. PT HAS A RIGHT FOOT IV #20 RUNNING NS @100ML/HR. MD AWARE THAT PATIENT IS REFUSING MEDICATIONS AND ACCU CHEKS. SAFETY PRECAUTIONS IN PLACE, BED IN LOWEST LOCKED POSITION, X3 SIDE RAILS UP AND CALL LIGHT WITHIN REACH. WILL CONTINUE TO MONITOR.
[2018-07-08] MEDS ORDERED: PHARMACY TO CHANGE GT/NG MEDS TO PO XX PRN (19:30)
[2018-07-08 20:39] VITALS: BP 171/86
[2018-07-08] MEDS ORDERED: VALPROIC ACID 250 MG/5 ML UDC PO SCH (21:00)
[2018-07-08] MEDS: DIVALPROEX SODIUM 500 MG TABLET.DR PO SCH (21:38)
[2018-07-08] MEDS: TAMSULOSIN 0.4 MG CAP.SR.24H PO SCH (21:38)
[2018-07-08] MEDS: ATORVASTATIN 10 MG TABLET PO SCH (21:38)
[2018-07-08] MEDS: DONEPEZIL 5 MG TABLET PO SCH (21:38)
[2018-07-09] MEDS: IV NS 0.9% 1,000 ML IV PRN ×2 (02:34→13:45)
--- NOTE | 2018-07-09 06:44 | NUR ---
RN NOTES PATIENT REFUSED LAB BLOOD DRAW. INFORMED LAB TO RETURN AROUND 9AM. WILL ENDORSE TO DAY SHIFT NURSE FOR CONTINUITY OF CARE.
--- NOTE | 2018-07-09 06:45 | NUR ---
RN CLOSING NOTES PT AWAKE AND RESTING IN BED. NO APPARENT S/S OF PAIN, DISTRESS OR SOB OVERNIGHT. PATIENT REFUSED ACCU CHEKS. PT HAS A RIGHT FOOT IV #20 RUNNING NS @100ML/HR. SAFETY PRECAUTIONS IN PLACE, BED IN LOWEST LOCKED POSITION, X3 SIDE RAILS UP AND CALL LIGHT WITHIN REACH. WILL ENDORSE TO DAY SHIFT NURSE FOR CONTINUITY OF CARE.
[2018-07-09] MEDS: BLOOD SUGAR DIAGNOSTIC 1 EACH STRIP IN SCH ×4 (06:46→22:00)
[2018-07-09 08:00] VITALS: BP 164/96
[2018-07-09] MEDS: SIMETHICONE 80 MG TAB.CHEW PO SCH (08:13)
[2018-07-09] MEDS: hydrALAZINE HCL 10 MG TABLET PO SCH ×3 (08:13→16:39)
[2018-07-09] MEDS: DIVALPROEX SODIUM 500 MG TABLET.DR PO SCH ×2 (08:14→21:00)
[2018-07-09] MEDS: FINASTERIDE (5 MG) 5 MG TABLET PO SCH (08:14)
[2018-07-09] MEDS: ENOXAPARIN SODIUM 40 MG/0.4 ML DISP.SYRIN SQ SCH (08:14)
[2018-07-09] MEDS: CHOLECALCIFEROL 1,000 UNIT TABLET (VIT D3) PO SCH (08:14)
[2018-07-09] MEDS: AMLODIPINE BESYLATE 10 MG TABLET PO SCH (08:14)
[2018-07-09] MEDS: LEVOTHYROXINE SODIUM 50 MCG TABLET PO SCH (08:14)
--- NOTE | 2018-07-09 08:15 | NUR ---
M/S RN - Assessment Patient awake, appears to be comfortable, no apparent distress noted, stable on room air. IVF NS at 100 ml/hr infusing well on the right foot with no signs of infiltration. Patient refusing skin assessment, blood draw, fingerstick blood sugar checks, and lovenox administration. Patient educated on the importance but still refused and became aggressive and combative. Fall precautions maintained. Still awaiting for placement. Will continue with current medical management.
[2018-07-09] MEDS ORDERED: AMLODIPINE BESYLATE 10 MG TABLET GT SCH (09:00)
[2018-07-09] MEDS: OLANZAPINE 2.5 MG TABLET PO SCH ×2 (11:57→16:39)
[2018-07-09] MEDS: LEVOFLOXACIN (750 MG) 750 MG TABLET PO SCH (12:00)
[2018-07-09 16:00] VITALS: BP 113/74
--- NOTE | 2018-07-09 17:22 | NUR ---
M/S RN - Closing Notes Patient alert to self, remain confused, combative at times, psych meds adjusted by Dr. Casanova. Continue IVF to maintain hydration. Still awaiting for placement. No fall or injury during shift. Will continue with current plan of care and endorsed to assistant head cashier accordingly.
--- NOTE | 2018-07-09 19:30 | NUR ---
RN NOTES RECEIVED PT. AWAKE ON BED, A/OX1, IV FLUID NS RUNNING @ 100ML/HR, NO PAIN NOTED, NO SOB, CALL LIGHT WITHIN REACH, [id number], CONTINUE TO MONITOR
[2018-07-09 20:00] VITALS: BP 140/77
--- NOTE | 2018-07-09 21:00 | NUR ---
RN NOTES PT. REFUSED ACCU CHECK AND HIS MEDICATION
[2018-07-09] MEDS: DONEPEZIL 5 MG TABLET PO SCH (22:00)
[2018-07-09] MEDS: ATORVASTATIN 10 MG TABLET PO SCH (22:00)
[2018-07-09] MEDS: TAMSULOSIN 0.4 MG CAP.SR.24H PO SCH (22:00)
[2018-07-10] MEDS: IV NS 0.9% 1,000 ML IV PRN ×3 (02:14→21:33)
--- NOTE | 2018-07-10 06:32 | NUR ---
RN NOTES PT. REFUSED ACCU-CHECK, PT IS THROWING THE CALL LIGHT BUTTON TO US BUT MANAGED TO DO THE MORNING CARE, NO PAIN NOTED, NO SOB, CALL LIGHT WITHIN REACH, [id number], PT. NEEDS ATTENDED
[2018-07-10] MEDS: BLOOD SUGAR DIAGNOSTIC 1 EACH STRIP IN SCH ×4 (07:17→21:42)
--- NOTE | 2018-07-10 07:45 | NUR ---
M/S RN - Assessment Patient awake, appears to be comfortable, no s/s of distress, stable on room air. IVF NS at 100 ml/hr infusing well on the right foot with no signs of infiltration. Patient refusing still refusing blood draw, fingerstick blood sugar checks. Fall precautions maintained. Still awaiting for placement. Will continue with current plan of care.
[2018-07-10 08:00] VITALS: BP 139/83
[2018-07-10] MEDS: FINASTERIDE (5 MG) 5 MG TABLET PO SCH (08:08)
[2018-07-10] MEDS: hydrALAZINE HCL 10 MG TABLET PO SCH ×3 (08:08→16:23)
[2018-07-10] MEDS: AMLODIPINE BESYLATE 10 MG TABLET PO SCH (08:08)
[2018-07-10] MEDS: CHOLECALCIFEROL 1,000 UNIT TABLET (VIT D3) PO SCH (08:08)
[2018-07-10] MEDS: LEVOTHYROXINE SODIUM 50 MCG TABLET PO SCH (08:08)
[2018-07-10] MEDS: DIVALPROEX SODIUM 500 MG TABLET.DR PO SCH ×2 (08:08→20:10)
[2018-07-10] MEDS: OLANZAPINE 2.5 MG TABLET PO SCH ×2 (08:08→16:24)
[2018-07-10] MEDS: ENOXAPARIN SODIUM 40 MG/0.4 ML DISP.SYRIN SQ SCH (08:09)
[2018-07-10] MEDS: SIMETHICONE 80 MG TAB.CHEW PO SCH (08:13)
[2018-07-10] MEDS: LEVOFLOXACIN (750 MG) 750 MG TABLET PO SCH (12:01)
[2018-07-10 15:50] VITALS: BP 143/80
--- NOTE | 2018-07-10 16:43 | NUR ---
M/S RN - Closing Notes No significant change in condition seen, afebrile, vital signs stable, remain confused, striking out staff when doing skin care and repositioning. Patient taking medications well when mixed with food. Continue IVF to maintain hydration. No fall or injury during shift. Still awaiting for placement. Will continue with current medical management.
--- NOTE | 2018-07-10 19:27 | NUR ---
MS/RN OPENING NOTES RECEIVED ENDORSEMENT FROM AM RN FOR GENE, PATIENT, IN BED, AWAKE, ALERT X 1, CAN RESPON AND USES CALL LIGHTS FOR ASSISTANCE, REQUIRE FREQUENT REORIENTATION AND FOR SAFETY PATIENT EXHIBITS AGGRESSIVE BEHAVIOR AT TIMES. WILL MONITOR ANY CHANGES IN BEHAVIOR AND ASSIST WITH SAFETY AT ALL TIMES. RECEIVED ENDORSEMENT FROM AM RN FOR GENE.
[2018-07-10 20:00] VITALS: BP 140/83
[2018-07-10] MEDS: TAMSULOSIN 0.4 MG CAP.SR.24H PO SCH (21:18)
[2018-07-10] MEDS: DONEPEZIL 5 MG TABLET PO SCH (21:18)
[2018-07-10] MEDS: ATORVASTATIN 10 MG TABLET PO SCH (21:18)
--- NOTE | 2018-07-10 21:42 | NUR ---
MS/RN NOTES PATIENT REFUSE TO HAVE HIS BLOOD SUGAR CHECK. AGGRESSIVE BEHAVIOR EXHIBITED. WILL INFORM MD.
--- NOTE | 2018-07-11 07:01 | NUR ---
311-2 MS/RN NOTES PATIETN ABLE TO SLEEP DURING THE NIGHT, FREQUENT MONITORING FOR SAFETY, CALL LIGHTS WITHIN REACH, BED LOCKED, ATTEND TO NEEDS, CALL LIGHTS WITHIN REACH, WILL ENDORSE TO AM RN FOR GENE.
[2018-07-11] MEDS: BLOOD SUGAR DIAGNOSTIC 1 EACH STRIP IN SCH ×3 (07:30→17:23)
--- NOTE | 2018-07-11 07:39 | NUR ---
MS RN NOTES PATIENT RECEIVED RESTING INSIDE ROOM. AWAKE, ALERT AND ORIENTED TO SELF. PATIENT CONFUSED, WITH DISCORGANIZED THOUGHTS. BREATHING EVEN AND UNLABORED, NO SOB OR ACUTE DISTRESS. DENIES ANY PAIN OR DISCOMFORT. NO FACIAL GRIMACE NOTED AT THIS TIME. PATIENT REFUSED FSBS THIS AM, RISKS AND BENEFITS EXPLAINED BUT TO NO AVAIL, PATIENT STRONGLY REFUSED. WILL CONTINUE TO MONITOR. SAFETY PRECAUTIONS IN PLACE. BED LOCKED AND IN LOW POSITION. BILATERAL UPPER SIDE RAILS UP AND LOCKED. BED ALARM ON. CALL LIGHT WITHIN EASY REACH
[2018-07-11 08:00] VITALS: BP 150/86
[2018-07-11] MEDS: AMLODIPINE BESYLATE 10 MG TABLET PO SCH (08:35)
[2018-07-11] MEDS: hydrALAZINE HCL 10 MG TABLET PO SCH ×3 (08:35→17:22)
[2018-07-11] MEDS: FINASTERIDE (5 MG) 5 MG TABLET PO SCH (08:35)
[2018-07-11] MEDS: LEVOTHYROXINE SODIUM 50 MCG TABLET PO SCH (08:35)
[2018-07-11] MEDS: CHOLECALCIFEROL 1,000 UNIT TABLET (VIT D3) PO SCH (08:35)
[2018-07-11] MEDS: SIMETHICONE 80 MG TAB.CHEW PO SCH (08:35)
[2018-07-11] MEDS: OLANZAPINE 2.5 MG TABLET PO SCH ×2 (08:35→17:22)
[2018-07-11] MEDS: DIVALPROEX SODIUM 500 MG TABLET.DR PO SCH (08:35)
[2018-07-11] MEDS: ENOXAPARIN SODIUM 40 MG/0.4 ML DISP.SYRIN SQ SCH (08:36)
[2018-07-11] MEDS: IV NS 0.9% 1,000 ML IV PRN (08:46)
[2018-07-11 16:00] VITALS: BP 150/88
[2018-07-11 17:22] VITALS: BP 150/88
--- NOTE | 2018-07-11 18:11 | NUR ---
MS RN NOTES PATIENT FOR DISCHARGE TODAY. TO DISCHARGE TO [facility] AT [address] [place] [address]. PLACED CALL TO JAYCEE MONTENEGRO ([phone]) AND VERIFIED PATIENT ADMISSION. DISCHARGE INSTRUCTIONS AND EDUCATION GIVEN TO PATIENT. IV REMOVED WITH MINIMAL BLEEDING NOTED, PRESSURE DRESSING PLACED ON SITE. NO BELONGINGS ON DISCHARGE. PATIENT REFUSED TO HAVE PICTURES TAKEN. EXPLAINED X 3 BUT PATIENT STRONGLY REFUSED. PATIENT LEFT UNIT AT 1805 VIA GURNEY IN STABLE CONDITION. BREATHING EVEN AND UNLABORED. NO SOB OR ACUTE DISTRESS. DENIES ANY PAIN OR DISCOMFORT. MD MADE AWARE OF DISCHARGE
== END 2018-07-11 18:13 | disposition home or self-care (01) | DRG 463 ==
LOC: ER 20:26 → TELE 22:11 → MED 07-01 04:54
PROVIDERS: ADMIT Internal Medicine; ATTEND Internal Medicine
DX: N39.0 Urinary tract infection, site not specified (principal); G93.41 Metabolic encephalopathy; F03.91 Unspecified dementia, unspecified severity, with behavioral disturbance; R53.2 Functional quadriplegia; J44.9 Chronic obstructive pulmonary disease, unspecified; R13.10 Dysphagia, unspecified; F20.9 Schizophrenia, unspecified; E87.5 Hyperkalemia; E87.6 Hypokalemia; G40.909 Epilepsy, unspecified, not intractable, without status epilepticus; Z86.73 Personal history of transient ischemic attack (TIA), and cerebral infarction without residual deficits; Z85.46 Personal history of malignant neoplasm of prostate; E78.5 Hyperlipidemia, unspecified; Z86.79 Personal history of other diseases of the circulatory system; N40.0 Benign prostatic hyperplasia without lower urinary tract symptoms; Z88.0 Allergy status to penicillin; Z88.8 Allergy status to other drugs, medicaments and biological substances; F05 Delirium due to known physiological condition; F39 Unspecified mood [affective] disorder; E03.9 Hypothyroidism, unspecified; E16.2 Hypoglycemia, unspecified; I10 Essential (primary) hypertension
CPT/HCPCS: 36415; 71045-TC; 80048-TC; 80061-TC; 80164-TC; 81000-TC; 82962-TC; 83540-TC; 83735-TC; 84100-TC; 84443-TC; 84484-TC; 85025-TC; 87040-TC; 87081-TC; 87086-TC; A4216; A4606; G0378; G0480; J1630; J1650; J1815; J1956; J3480; J3490; J7030; J7060; Q0163; Z7610